=== PATIENT | male | born 1970 | race Caucasian/White ===

== ENCOUNTER 2021-06-19 14:51 | Emergency (ER) | payer SELFPAY ==
--- NOTE | ~2021-06-19 | XR_ITS ---
EXAMINATION: XR chest 1V portable DATE: 06/19/2021 17:23 INDICATION: Right flank pain. TECHNIQUE: A single frontal view of the chest was obtained on 2 radiographs. COMPARISON: Chest 2 views 02/13/2013 FINDINGS: The chest demonstrates clear lungs without pneumonia, pleural effusion, or pneumothorax. Th e heart size is normal. IMPRESSION: 1. No acute cardiopulmonary disease. Reviewed, dictated and finalized at [facility]. VERY M[facility]
--- NOTE | ~2021-06-19 | CT_ITS ---
EXAMINATION: CT abdomen pelvis w con DATE: 06/19/2021 18:15 INDICATION: Right flank pain for 6 months TECHNIQUE: Computed tomography (CT) of the abdomen and pelvis was performed with 100 cc Omnipaque 350 intravenous contrast. Automated exposure control and iterative reconstruction technique were employe d. Exam dose: 406.73 mGy-cm total exam DLP. COMPARISON: None. FINDINGS: The lung bases are clear of infiltrate or consolidation. Normal heart size. No pericardial or pleural effusion. The liver, gallbladder, bile ducts, spleen, pancreas, pancreatic duct, and adrenal glands and kidneys are unremarkable. No urinary tract calculus or hydroureteronephrosis. There is extensive calcification of the abdominal aorta as well as calcification at the origins of th e celiac and superior mesenteric and inferior mesenteric arteries, extensive calcification of the com mon iliac arteries. No abdominal aortic aneurysm. No intraperitoneal or retroperitoneal or pelvic mass lesion or adenopathy or ascites. Prostate calcifications. The urinary bladder is unremarkable. Normal appendix. No bowel obstruction or intraperitoneal free air. IMPRESSION: No urinary tract calculus or hydroureteronephrosis Normal appendix Prominent atherosclerotic calcification including particularly the abdominal aorta and iliac arteries Reviewed, dictated and finalized at [facility]. Reviewed, dictated and finalized at [facility]. [employer] OPERATOR IMPRESSION: No urinary tract calculus or hydroureteronephrosis Normal appendix Prominent atherosclerotic calcification including particularly the abdominal ao rta and iliac arteries
[2021-06-19 15:06] VITALS: BP 143/84; PULSE 76; RESP 18; TEMP 36.4; O2SAT 97
[2021-06-19 17:03] VITALS: BP 150/62; PULSE 71; RESP 16; O2SAT 97
--- NOTE | 2021-06-19 17:09 | ED.BACK ---
HPI - Back Pain/Injury General Chief Complaint: Back Pain/Injury Stated Complaint: flank pain Time Seen by Provider: 06/19/21 17:01 Source: patient Mode of arrival: ambulatory Limitations: no limitations History of Present Illness HPI Narrative: Patient is 50 years old white male presents with right flank pain, intermittent for years usually last for few weeks/months then go away. This 1 lasted for 2 months on arrival. Patient denies any aggravating factors, gets better if he lays down still. Patient denies any fever, chills, nausea, vomiting, diarrhea, constipation, urinary symptoms, chest pain or shortness of breath patient does smoke and uses marijuana, denies any alcohol intake. Last time was seen by a physician over 6 years ago. Patient does not take medicine at home. Patient denies any history of abdominal surgery. Related Data Allergies Allergy/AdvReac Type Severity Reaction Status Date / Time Penicillins Allergy Unknown Unknown Verified 02/07/18 14:09 Review of Systems Review of Systems: CONSTITUTIONAL: Denies fever, chills, or sweats. EYES: Denies visual changes, redness, or discharge. ENT: Denies rhinorrhea, congestion, sore throat, or otalgia. CARDIOVASCULAR: Denies chest pain, palpitations, or edema. RESPIRATORY: Denies cough or dyspnea. GASTROINTESTINAL: Denies abdominal pain, nausea, vomiting, or diarrhea. GENITOURINARY: Denies dysuria or hematuria. SKIN: Denies rash or itching. MUSCULOSKELETAL: Denies back pain, joint pain, or myalgia. NEUROLOGIC: Denies headache, numbness, or weakness. PSYCHIATRIC: Denies anxiety or depression. PMFSH Family History Family History Father Family history of congestive heart failure, Onset Age: 63 Mother Family history of malignant neoplasm, Onset Age: 63 Other Diabetes mellitus Social History Social History Smoking status: Current every day smoker Alcohol intake: never Exam Narrative: General appearance: Well-developed, well-nourished Skin: Normal color Head: Normocephalic, nontraumatic Eyes: Clear conjunctiva ENT: Oropharynx normal, ears normal, nose normal Neck: Supple, nontender Chest and respiratory: Airway patent, no respiratory distress, no accessory muscle use Heart: Regular rate/rhythm Abdomen: Soft, slight tenderness right flank, no bruises, no swelling, no rash,, no organomegaly, quiet bowel sounds Vascular: Normal peripheral pulses, normal capillary refill. Musculoskeletal: Normal range of motion, nontender back Neurologic: Alert and oriented ?3, [employer]M [employer] OPERATOR is normal as tested, no gross motor deficit Course Course Emergency Course: Stable Vital Signs Vital signs: Vital Signs Temperature 36.4 C 06/19/21 15:06 Pulse Rate 76 06/19/21 15:06 Respiratory Rate 18 06/19/21 15:06 Blood Pressure 143/84 H 06/19/21 15:06 Pulse Oximetry 97 06/19/21 15:06 Temperature 36.4 C 06/19/21 15:06 Pulse Rate 71 06/19/21 17:03 Respiratory Rate 16 06/19/21 17:03 Blood Pressure 150/62 H 06/19/21 17:03 Pulse Oximetry 97 06/19/21 17:03 MDM - Back Pain/Injury MDM Narrative Medical decision making narrative: Right flank pain. Work-up did not show any significant findings to explain patient complaint. Musculoskeletal is high likely. Differential Diagnosis Differential diagnosis: Likely renal colic, pyelonephritis and other (Kidney stone, musculoskeletal) Lab Data Result diagrams: 06/19/21 17:14 06/19/21 17:14 Labs: Lab Results 06/19/21 06/19/21 06/19/21 Range/Units 17:14 17:14 18:00 WBC 11.9 H (4.5-10
[2021-06-19 17:45] LABS: Basophils Absolute Auto 0.1 K/mm3 (0.0-0.1); Basophils Percent Auto 0.5 % (0.2-1.2); Eosinophils Absolute Auto 0.1 K/mm3 (0-0.3); Eosinophils Percent Auto 0.5 % (0-4.4); Hematocrit 47.9 % (42.0-52.0); Hemoglobin 16.8 g/dL (14.0-18.0); Immature Granulocyte Absolute 0.03 K/mm3 (0.00-0.031); Immature Granulocyte Percent A 0.3 % (0-0.5); Lymphocytes Absolute Auto 3.53 K/mm3 (0.9-3.2); Lymphocytes Percent Auto 29.7 % (18.3-44.2); Mean Corpuscular HGB Conc 35.1 g/dl (32-36); Mean Corpuscular Hemoglobin 32.9 pg (26-34); Mean Corpuscular Volume 93.9 fl (80-100); Mean Platelet Volume 11.5 fl (7.4-10.4); Monocytes Absolute Auto 0.9 K/mm3 (0.1-0.6); Monocytes Percent Auto 7.5 % (2.6-8.5); Neutrophils Absolute Auto 7.3 K/mm3 (1.3-6.7); Neutrophils Percent Auto 61.5 % (45.5-73.1); Platelet Count Result 230 k/mm3 (150-375); Red Cell Distribution Width 12.8 % (11.5-14.5); White Blood Count 11.9 K/mm3 (4.5-10.0)
[2021-06-19 17:56] LABS: Alanine Aminotransferase 24 U/L (4-50); Albumin Level 5.2 g/dL (3.5-5.1); Alkaline Phosphatase 92 U/L (38-126); Anion Gap 8 mmol/L (8-16); Aspartate Amino Transferase 27 U/L (17-59); Bilirubin,Total 0.6 mg/dL (0.2-1.3); Blood Urea Nitrogen 16 mg/dL (9-20); Calcium 9.6 mg/dL (8.4-10.2); Carbon Dioxide 23 mmol/L (22-30); Chloride 107 mmol/L (98-107); Estimated CRCL calculation 113 ml/min; Estimated Glomerular Filt Rate > 60; Glucose 103 mg/dL (65-110); Lipase 130 U/L (23-300); Potassium 4.2 mmol/L (3.4-5.0); Sodium 138 mmol/L (137-145)
[2021-06-19 18:18] LABS: Add Urine Microscopic? NO; Appearance Urine Clear (Clear); Bilirubin Urine Negative (Negative); Blood Urine Negative (Negative); Color Urine Straw (Yellow); Glucose Urine UA Negative (Negative); Ketones Urine Negative (Negative); Leukocyte Esterase Ur Negative LEU/UL (Negative); Nitrate Urine Negative (Negative); Protein Urine Negative (Negative); Specific Grav Ur 1.011 (1.001-1.035); Urobilinogen Urine Negative mg/dL (<2.0)
[2021-06-19] MEDS: SODIUM CHLORIDE 0.9% IV 1,000 ML 999 ML IV CONT (18:30)
[2021-06-19 19:00] VITALS: BP 161/92; PULSE 73; RESP 16
--- NOTE | 2021-07-02 10:19 | PC.NURSE ---
late entry from 06/19/21 ns bolus 1000 cc infused at 1930
== END 2021-06-19 19:00 | disposition home or self-care (01) ==
PROVIDERS: Emergency Provider Emergency Medicine
DX: R10.9 Unspecified abdominal pain (principal); F17.200 Nicotine dependence, unspecified, uncomplicated; I70.0 Atherosclerosis of aorta; I70.8 Atherosclerosis of other arteries
CPT/HCPCS: 36415; 71045; 74177; 80053; 81003; 83690; 85025; 96360; 99284; J7030; Q9967